=== PATIENT | female | born 1980 ===

== ENCOUNTER 2017-05-02 16:20 | Inpatient (IN) | payer MEDICAID ==
--- NOTE | 2017-05-02 20:53 | RAD ---
HISTORY: Seizure COMPARISONS: None VIEWS: 1: frontal portable view of the chest at 8:43 PM FINDINGS: LINES AND TUBES: None. CARDIOMEDIASTINAL SILHOUETTE: The cardiomediastinal silhouette is normal for portable technique. PLEURA: The costophrenic angles are sharp. No pleural abnormalities are noted. LUNG PARENCHYMA: The lung volumes are low. There is patchy alveolar opacification of the left lung base. ABDOMEN: The upper abdomen is clear. There is no subphrenic gas. BONES AND SOFT TISSUES: No bone or soft tissue abnormalities are noted. IMPRESSION: LOW LUNG VOLUMES. LEFT BASILAR ATELECTASIS VERSUS CONSOLIDATION
[2017-05-02] MEDS ORDERED: Ondansetron INJ* 2 MG/ML VIAL IV PRN (20:54)
[2017-05-02] MEDS ORDERED: Acetaminophen SUPP* 650 MG SUPP PR PRN (20:54)
[2017-05-02] MEDS ORDERED: LORazepam INJ* 2 MG/ML 1 ML VIAL IV PUSH PRN (21:10)
[2017-05-02 21:50] LABS: Hematocrit 34 % (35-47); Hemoglobin 11.1 g/dl (12.0-16.0); Mean Corpuscular HGB Conc 33 g/dl (31-36); Mean Corpuscular Hemoglobin 31 pg (27-31); Mean Corpuscular Volume 94 fL (80-97); Mean Platelet Volume 10 um3 (7.4-10.4); Red Blood Count 3.57 10^6/ul (4.0-5.4); Red Cell Distribution Width 16 % (10.5-15); White Blood Count 3.5 10^3/ul (3.5-10.8)
[2017-05-02] MEDS ORDERED: Zosyn per Pharmacy* NOTE FOLLOW UP SCH (22:00)
[2017-05-02 22:01] LABS: Albumin 3.1 g/dL (3.2-5.2); BUN/Creatinine Ratio 16.4 (8-20); C Reactive Protein 19.35 mg/L (< 5.00); Calcium 8.9 mg/dL (8.6-10.3); EGFR African American 60.7 (>60); EGFR Non-African American 47.2 (>60); Globulin 3.6 g/dL (2-4); Potassium 3.9 mmol/L (3.5-5.0); Total Bilirubin 0.5 mg/dL (0.2-1.0); Total Protein 6.7 g/dL (6.4-8.9)
[2017-05-02] MEDS: NS 0.9% 1000 ML* 1,000 ML IV SCH (22:21)
[2017-05-02] MEDS: Pantoprazole IV* 40 MG IV SCH (22:30)
[2017-05-02] MEDS: Heparin VIAL(*) 5000 UNITS/ML VIAL (FIVE THOUSAND) SUBCUT SCH (22:31)
[2017-05-02 23:17] LABS: Erythrocyte Sed Rate 49 mm/Hr (0-14)
--- NOTE | 2017-05-02 23:34 | HP ---
CC: Dr. De Santiago; Dr. Garcia; Dr. Dwyer * HISTORY AND PHYSICAL: DATE OF ADMISSION: 05/02/17 PRIMARY CARE PROVIDER: Dr. Garcia. CONSULTING NEUROLOGIST: Dr. Dwyer. MY ATTENDING PHYSICIAN WHILE IN THE HOSPITAL: Dr. Charleen Pillai * (report dictated by Elroy Gonzalez NP). CHIEF COMPLAINT: Weakness. HISTORY OF PRESENT ILLNESS: I would like to preface this report by saying that the patient is a significant intellectual developmental delay from cerebral palsy. 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 She comes in today from [facility] as the patient's mother, who is alone involved in her care, reports to me that approximately the beginning of March, she underwent an EEG with her primary neurologist, Dr. De Santiago, in [address]. We will try to get his records that showed that she was having subclinical seizures. She was started on the medication Onfi for these background seizures. Initially was doing well, however, mother has noted that over the last 3 weeks, she has had progressive worsening decline in her mentation. She has been more weak, more lethargic, drowsy, unable to walk. Before this, she was able to walk. She had a seizure about 3 weeks ago. She had a grand mal seizures. She was able to this. The patient unfortunately 4 days ago had an episode where she was choking. The mother was looking up the side effects of the Onfi. The patient's mother felt that this was causing her decline and since being put on this, she was not doing well. She stopped the medication. She went to her primary today for followup and it was noted today that the patient was so weak, she could barely get out of bed. Her appetite has been down. She has not been eating well. She just has not been doing well. Also there has been noted as having some tremors as well. The patient again is noted to have a decreased appetite. She has been more sedated and having difficulty. The patient was evaluated by her primary and she was sent back to [facility]. They called Dr. De Santiago, who felt that she would need long- term EEG monitoring according to [facility] notes and the patient was transferred here for further workup. In evaluating and talking with the mother, she has not had a grand mal. The last one was 3 weeks ago and the one before that was 6 weeks ago. She may still be having some background subclinical seizures but she has not had a repeat followup EEG. There was concern because of the choking episode, progressive worsening weakness, weight loss, and decreased appetite and that is what the mother's main concern was and why she presented to [facility] today, was not for worsening increasing seizures. She was evaluated there but because it was felt that she needed a higher level of care, we were asked to evaluate. There have been no reports of fever. No reports of vomiting, diarrhea. There was only one episode of choking and there has been no reports of abdominal distention, just again weakness, decreased appetite and just having more drowsiness. PAST MEDICAL HISTORY: She has had history of CP, intellectual development delay , seizures, lupus, CKD, Rett syndrome, history of CHF in the past and autism. PAST SURGICAL HISTORY: She has a port placement and port removal. HOME MEDICATIONS: According to the list provided by [facility] and the mother is going to bring in a more accurate list includes: 1. Milk thistle 175 mg p.o. daily. 2. Melatonin 3 mg p.o. at bedtime. 3. Magnesium oxide 250 mg p.o. daily. 4. Dandelion root 520 mg p.o. b.i.d. 5. Tylenol 325 mg p.o. every 6 hours as needed. 6. Prednisone 2.5 mg daily. 7. Imuran 150 mg p.o. daily. 8. Claritin 10 mg p.o. daily. 9. Plaquenil 200 mg p.o. b.i.d. 10. Keppra 500 mg p.o. b.i.d. 11. one application daily. 12. Lisinopril 5 mg daily. 13. Depo-Provera 150 mg every 12 weeks. 14. Calcium 600 mg p.o. q.48 hours. 15. Klonopin 1 mg p.o. b.i.d. 16. Norvasc 10 mg daily. 17. Lopressor 100 mg p.o. daily. 18. Ativan 0.5 mg p.o. daily as needed. 19. Zonegran 50 mg p.o. daily. 20. Acyclovir 400 mg p.o. b.i.d. ALLERGIES TO MEDICATION: Include PHENOBARBITAL and ONFI. FAMILY HISTORY: Both her parents are healthy and they are with her today. SOCIAL HISTORY: She does not smoke. She does not drink. Surrogate decision maker is her mother. REVIEW OF SYSTEMS: Unable to be obtained because of the patient's intellectual development delay. PHYSICAL EXAMINATION GENERAL: At this time, Ms. Rodriguez is a 37-year-old female patient. She is sitting in the ICU bed. She does not appear to be in any acute distress. She is alert. She is making eye contact with the mother. VITAL SIGNS: Blood pressure 116/70, pulse 72, respirations were 18, O2 sat was 98%. HEENT: Head is atraumatic, normocephalic. Eyes: Sclerae are anicteric. Pupils are blind. Throat: Oral mucosa appears to be dry. No oropharyngeal erythema. NECK: Supple. LUNGS: Clear to auscultation. No wheezes, rales, or rhonchi. HEART: Sounds S1, S2. Regular rate and rhythm. No murmurs, rubs, or gallops. ABDOMEN: Soft, flat, and nontender. Bowel sounds are present. EXTREMITIES: Pulses were 2+ throughout. She is grossly moving all 4 extremities. She had no gross focal deficits. SKIN: Grossly intact. DIAGNOSTIC STUDIES/LAB DATA: Labs over from [facility] revealed WBC of 4.39, RBC of 3.86, hemoglobin 12.2, hematocrit 36. Her platelet count was 332. Urine showed yellow, clear, 1+ bili, 1.026 specific gravity, 2+ protein, 3 to 5 rbc's. Glucose was 98, BUN 26, creatinine 1.70, sodium 144, potassium 4, chloride of 113, bicarb 19, calcium 9.2, total protein 7.6, albumin 3, AST 120, ALT 112, alk phos 120, lactic 1.4. Report from CT imaging showed no acute intracranial process. Old medical records were reviewed. ASSESSMENT AND PLAN: Ms. Rodriguez is a 37-year-old female patient with multiple medical problems coming into the [facility] ER for worsening weakness. We were asked to evaluate and she was transferred here for possible long-term EEG monitoring and neurologic evaluation. She will be admitted under inpatient status for: 1. Weakness. The etiology is unclear. It could certainly be med related from the Onfi. I do think that she does deserve a neurology consult, which will be done tomorrow. We may need to consider doing an EEG possibly long-term monitoring, titrating and adjusting the antiepileptic medications. Certainly weakness could be from worsening lupus as well, so I am going to add on a CRP and an ESR. It could be underlying occult infection. She did choke 4 days ago and aspiration is a possibility. We think a repeat chest x-ray is appropriate. My plan at this point is to monitor her. Should she have any signs of infection, I will put on antibiotics. We do not have any obvious source of infection at this point. We will get the x-ray. If it shows anything suspicious, we will certainly put her on antibiotics. 2. Seizures. Again at this point, she is not actively having any seizures here currently. We will continue to follow her and monitor her, put her on seizure precautions, p.r.n. Ativan is available. Should she have a seizure, we will continue her Keppra. I am switching it over to IV because of the dysphagia and we will continue to follow. 3. Dysphagia. Again, etiology is unclear. Question this is related to weakness. My plan would be to get a speech and swallow evaluation to evaluate this and again we will get Neurology evaluation as well and I will continue to follow. Should she pass a swallow eval, the mother does request mechanical ground diet and also Kosher diet. 4. Cerebral palsy. Continue with supportive care. 5. Intellectual developmental delay. Continue supportive care. 6. History of lupus. Again, we will check ESR, CRP. We will continue her meds when she is able to take p.o. She took them this morning. 7. Chronic kidney disease. Again, creatinine at [facility] was 1.7. We will hydrate her. We will repeat this tonight. 8. History of autism. I will continue supportive care. 9. History of congestive heart failure. She does not appear to be in any failure at this point. 10. Code status. Full code. 11. Fluids, electrolytes, nutrition. She is NPO pending a swallow evaluation. Did order normal saline at 100 an hour. 12. Hypertension. We will continue meds as prescribed. I did convert her Lopressor over to IV 5 mg once daily in the morning. When she is able to take p.o., we will switch to p.o. 13. DVT prophylaxis. She is high risk and placed on heparin subcu. TIME SPENT: Time spent on the admission 80 minutes; greater than half the time was spent [id number] with the patient obtaining my history and physical, other half of the time was spent going over the plan of care with the patient and implementing the plan of care. I did discuss plan of care with my attending, Dr. Pillai; she is in agreement. ELROY GONZALEZ, WELDER MACHINE OPERATOR [id number]/[facility] #: [id number] MTDKylee
[2017-05-03] MEDS: ZOSYN 3.375 GM Q8H per EXTENDED INFUSION IVPB SCH ×6 (03:58→21:21)
[2017-05-03] MEDS: Heparin VIAL(*) 5000 UNITS/ML VIAL (FIVE THOUSAND) SUBCUT SCH ×3 (06:24→21:25)
[2017-05-03 06:45] LABS: Hematocrit 30 % (35-47); Hemoglobin 9.8 g/dl (12.0-16.0); Mean Corpuscular HGB Conc 33 g/dl (31-36); Mean Corpuscular Hemoglobin 32 pg (27-31); Mean Corpuscular Volume 95 fL (80-97); Mean Platelet Volume 9 um3 (7.4-10.4); Red Cell Distribution Width 16 % (10.5-15)
[2017-05-03 07:02] LABS: BUN/Creatinine Ratio 16.2 (8-20); Calcium 8.2 mg/dL (8.6-10.3); EGFR African American 67.3 (>60); EGFR Non-African American 52.3 (>60)
[2017-05-03 07:12] LABS: Add Diff/Slide Review? Slide Review Added; Comments Flag Yes
[2017-05-03 07:54] LABS: Burr Cells 1+; Hypochromasia 1+; Tear Drop Cells 1+
[2017-05-03] MEDS ORDERED: clonazePAM TAB(*) 1 MG PO SCH ×2 (09:00→21:00)
[2017-05-03] MEDS ORDERED: levETIRAcetam TAB* 500 MG PO SCH ×2 (09:00→21:00)
[2017-05-03] MEDS ORDERED: Metoprolol Tartrate IV* 1 MG/ML 5 ML VIAL IV SCH (09:00)
[2017-05-03 09:19] LABS: TSH (Thyroid Stimulating Horm) 2.25 mcIU/mL (0.34-5.60)
[2017-05-03 09:26] LABS: Free T4 0.93 ng/dL (0.61-1.12)
--- NOTE | 2017-05-03 10:28 | CONS ---
CONSULTATION REPORT: DATE OF CONSULT: 05/03/17 PRIMARY CARE PHYSICIAN: Dr. Garcia. INPATIENT HOSPITALIST: Dr. Charleen Pillai. CURRENT LOCATION: ICU bed 2. REASON FOR CONSULT: Seizure like activity, weakness. HISTORY OF PRESENT ILLNESS: The patient has a history of Rett syndrome and is unable to give me any history. The mother is currently not at the bedside, but it is my hope that I will be able to cont act her today either in person or on the phone to discuss her case further. The nurse practitioner last night and I spoke on the phone several times and he had the opportunity to speak with the zache nt's mother and get some history. My history is going from my conversation last night as well as hi story and physical and discussions with the nurse this morning. The patient was not able to provide any meaningful history and is nonverbal. She apparently has a history of Rett syndrome and is foll owed by Dr. De Santiago, in [place]. We are attempting to get his records as well. Apparently, she has a h istory of "subclinical seizures." She has been on Keppra for some time, but recently was started on Onfi for her seizure like activity. She was on that for a short amount of time, when her mother no papito over the last several weeks that she started to decline. Whereas before she was walking, she wa s unable to walk. Her mother felt that she was generally weak and worsening, more lethargic and pramod wsy. Her last major seizure was 3 weeks ago reported, which was generalized tonic-clonic in nature. Apparently, the patient developed an episode 4 days ago, where she was choking and the mother was concerned that all of her decline was related to the Onfi. Per the nurse, the mother stopped the m edication and took her to the primary care, but she knew that she was stopping her seizure medicatio n. The primary care physician then sent her to the ER and Dr. De Santiago was notified and he felt that s he might need long-term EEG monitoring. At that time, she went back to the ER, she was noted to hav e worsening weakness, decreased appetite, more sedated, and tremors which appeared to be baseline as well. Based on this history, she was transferred here for additional monitoring and medication man agement per the admission history and physical. She has not had a generalized tonic/clonic seizure in the last several days. The last one was approximately 3 weeks ago, prior to that it was 6 weeks ago. Per the discussion with the mother, there have been no fevers, no reports of vomiting or diar francisco. Unfortunately, this is all of the history that I can get at this point. Again my plan is to speak with the mother later this morning to attempt to clarify some of these issues. PAST MEDICAL HISTORY: Includes: 1. Rett syndrome versus cerebral palsy. 2. Seizure disorder. 3. Lupus. 4. Chronic kidney disease. 5. CHF in the past. PAST SURGICAL HISTORY: Port placement and removal. MEDICATIONS: Per the electronic medical record, her active home medications include: 1. Milk thistle 175 mg per day. 2. Melatonin 3 mg at bedtime. 3. Magnesium oxide 250 mg daily. 4. Dandelion root 520 mg p.o. b.i.d. 5. Acetaminophen p.r.n. 6. Prednisone 2.5 mg p.o. daily. 7. Azathioprine 150 mg p.o. daily. 8. Loratadine 10 mg p.o. daily. 9. Hydroxychloroquine tab 200 mg p.o. b.i.d. 10. Keppra 1000 mg p.o. b.i.d. 11. Tea tree oil 1 oil extract daily. 12. Lisinopril 5 mg daily. 13. Depo-Provera 150 mg IM. 14. Calcium carbonate 600 mg p.o. q. 48 hours. 15. Clonazepam 1 mg p.o. b.i.d. 16. Amlodipine 10 mg p.o. daily. 17. Metoprolol 100 mg p.o. daily. 18. Lorazepam 0.5 mg daily p.r.n. 19. Zonegran 50 mg p.o. daily. 20. Acyclovir 400 mg p.o. b.i.d. FAMILY HISTORY: Parents are healthy. SOCIAL HISTORY: No tobacco, alcohol or drug use. REVIEW OF SYSTEMS: Review of systems in 14-organ systems I was unable to obtain because of the zach ent's mental status. PHYSICAL EXAM: Vital Signs: Blood pressure 140/66 to 136/70 to 153/73, heart rate in the 70s to 80 s, respiratory rate 21 to 26, O2 sat is 99 to 97 to 99. General: She is a thin fem armand, lying in her hospital bed. She expresses little emotion and is nonverbal. HEENT: She is norm ocephalic, atraumatic. Sclerae are anicteric. Mucous membranes are slightly dry. Oropharynx is moses ar. She has poor dentition. Neck: Supple. No thyromegaly. No carotid bruits. Chest: Clear to au scultation bilaterally. Cardiovascular: Regular rate and rhythm. Abdomen: Soft. Extremities: T here is no edema present. Neurologic Exam: She is awake, alert, but does not orient to person, maulik ce or time. She will look at me, but does not follow any commands. Cranial nerves: Her pupils are equally round and reactive to light. Her extraocular muscles are difficult to assess, but she jimenez s appear to look in all quadrants. Her face appears symmetric. Tongue: She would not protrude for me, I could not evaluate her palate, nor could I evaluate her sternocleidomastoid or trapezius. She blinks to threat. She spontaneously moves all extremities antigravity with increased tone througho ut. She has decreased movement on the left side greater than the right side, some purposeful movemen t bilaterally, but much greater on the right side than left side. As an example, she reached up with her right hand to try to pull the light away when I was examining her pupils. She slowly reached u p with her left hand, but it took much more time. She does withdraw the pain x4. No grimace was ap parent. DTRs were difficult to assess because of her positioning and compliance, but appeared to be down throughout, but symmetric. Babinski was equivocal. I could not test her gait or [id number], although at baseline she apparently does walk. She does have a resting tremor that is more a flap ping tremor at her arms and some tremor in her legs. This is consistent. It is a wide amplitude an d is present throughout movements and some at rest, although the nurse states the tremor did improve when she was sleeping. DIAGNOSTIC STUDIES/LAB DATA: Her lab work this morning includes a sodium of 142, potassium 4.0, chl oride of 118, carbon dioxide of 17, BUN of 19, creatinine of 1.17 down from 1.28 yesterday. BUN and creatinine ratio 15.2, glucose is 68, calcium of 8.2 yesterday. Her liver enzymes were elevated 11 5, ALT 70, alk phos is 90, total creatinine kinase is 660. Myoglobulin of 479.7, C-reactive protein of 19.35. ESR 49. Her white count this morning is 3. Hemoglobin of 9.8 and 30, yesterday 11.1 an d 34. INR 0.99. PTT is 34.9. Studies: An EEG is pending. A chest x-ray was done, which showed possible low lung volumes and pos sible left basilar atelectasis versus consolidation. ASSESSMENT AND PLAN: Ms. Rodriguez is a 37-year-old female who is nonverbal and unable to provide me any history, but per the records has a history of Rett syndrome versus cerebral palsy, development d elay, lupus, chronic kidney disease, congestive heart failure in the past, seizure disorder. She ap parently is on Keppra at baseline as well as Zonegran, and appears that she may be taking Klonopin a s well. She was recently put on Onfi and her mother noticed decrease in her functioning over the l ast several weeks. Her mother stopped the Onfi because she was concerned about her appetite, her w eight loss, her fatigue and somnolence, her inability to ambulate, which was a change from prior. S he had her last generalized tonic-clonic seizure reported 3 weeks ago and prior to that 6 weeks. Vic smith has had no recent generalized tonic-clonic seizure, but I suspect there is some concern about her tremor and possible underlying seizure activity as well. Her treating neurologist apparently had done an EEG, which showed subclinical seizures. Our plan today is 1. To get an EEG to look for subclinical seizures. 2. We will continue her Keppra and Zonegran. Try to clarify her medications but keep her off of e Onfi at this point. Per her chart, she is on Klonopin 1 mg p.o. b.i.d. and I will restart that to prevent any withdrawal seizures. 3. I will check Keppra and Zonegran levels, although these may take a while to come back. 4. She has a history of lupus, is on prednisone, Plaquenil, Imuran. Her ESR and CRP are elevated. Her white count is low. My concern would be, with her recent episode of choking 4 days ago that s he may have had an aspiration pneumonia. She has what looks like some consolidation in her lungs. She may not be able to mount much of a white count because of her immunosuppressants and her ESR an d CRP may be elevated due to infection versus her underlying autoimmune disorder. I would recommen d empiric antibiotic therapy, but I defer to her primary care physician. 5. I am going to check some additional labs including thyroid, copper level, ceruloplasmin, ammonia to make sure we are not missing some underlying cause of her tremor. 6. I am going to request her medical records from her treating neurologist to get a better sense of her most recent care. 7. I plan to speak with her family at some point today to flush out her history, her medication his tory specifically. 8. We will adjust her medications accordingly. Rett syndrome is associated with a number of abnorm alities including abnormal movements and stereotypical movements, loss of the ability to speak, gait difficulties, cardiac abnormalities. I do think she should be monitored on telemetry, but at this point she appears stable and I do think that she can be transferred to the floor with frequent neuro checks, seizure precautions. Because of her history of congestive heart failure, I am also going t o get an echocardiogram we will obtain a CT of her head to make sure there are no acute changes as w bipin. I will continue to follow her closely to make further recommendations as necessary. Thank you for the opportunity to participate in her care. [id number]/[facility] #: [id number]
--- NOTE | 2017-05-03 10:45 | CONS ---
ADDENDUM: DATE OF CONSULTATION: 05/03/17 Since my last note, I had a chance to talk with her mother; she gave me an updated medicine list. The mother states that prior to the addition of Onfi, the patient was actually clinically doing better. She saw her neurologist, who thought he found some subclinical seizures and that is when the Onfi was added. Since the Onfi was added, the patient's mother states that she seem to have declined, especially in the last week. She does note that she choked about 4 days ago and she went to the ER at that time. She subsequently went back to the ER yesterday, when her weakness became so profound that she could not walk. Her Keppra dose at home is 1250 mg in the morning and 1500 mg at night. Her creatinine is elevated. Her clearance is compromised. I am going to change the dose to 1000 mg p.o. b.i.d. for now as elevated keppra levels can paradoxically be associated with an increase frequency of seizures. We will continue her Zonegran at 200 mg p.o. b.i.d. I did speak with her mother extensively about the plan, which is to get her back on her normal dose of seizure medications, as she was doing well on those medications. Also noted this morning was elevated muscle enzymes of unclear etiology. I am not clear whether this may be an acute process or may be related to her underlying tremor activity. We will continue to follow this. I am going to check some additional lab work to rule out any kind of vasculitis, although my suspicion is low. It appears that her CK has dropped some to 563. This could also be related to the fact that she has been in bed lying down and not moving much with some underlying mild muscle breakdown. I also discussed with her primary treating physician the elevated CRP and ESR. It is unclear to me whether these may be related to an underlying infection given her recent choking episode or her rheumatologic condition. Primary is considering a Rheumatology referral as well. I will continue to follow along closely to make further recommendations. [id number]/[facility] #: [id number] KRISH
--- NOTE | 2017-05-03 10:55 | ECHO ---
Patient: ANABEL HERNANDEZ [facility] Rec#: [id number] : 1980 Date: 05/03/2017 Age: 37y Height: 152.4 cm / 60.0 in Weight: 49.44 kg / 109.0 lbs Sex: F BSA: 1.44 Room#: ICU-2 Admit Date#: 05/02/2017 Type: Inpatient Referring: Toribio Dwyer Reading: Gricel Juan MD Cryptographer: Yeimi Jasso RDCS CC: Brenton Garcia MD Transthoracic Echocardiogram Indication: CHF BP: 153/73 HR: 79 Rhythm: NSR Findings History: Rett syndrome,Cerebral Palsy,CHF,seizures, HTN,CKD. Technical Comments: The study quality is good. Completed at 1032. Left Ventricle: The left ventricular chamber size is normal. Mild concentric left ventricular hypertrophy is observed. Global left ventricular wall motion and contractility are within normal limits. There is normal left ventricular systolic function. The estimated ejection fraction is 50-55%. The patient was unable to perform a Valsalva maneuver. Left Atrium: The left atrial chamber size is normal. Right Ventricle: The right ventricular cavity size is normal. The right ventricular global systolic function is normal. Right Atrium: The right atrial cavity size is normal. Aortic Valve: The aortic valve is trileaflet. There is no evidence of aortic valve thickening. There is no evidence of aortic regurgitation. There is no evidence of aortic stenosis. Mitral Valve: The mitral valve leaflets are mildly thickened. There is a trace of mitral regurgitation. There is no evidence of mitral stenosis. Tricuspid Valve: The tricuspid valve leaflets are normal. There is a physiologic tricuspid regurgitation. There is no tricuspid stenosis. Pulmonic Valve: The pulmonic valve appears normal. There is a trace pulmonic regurgitation. There is no pulmonic stenosis. Pericardium: The pericardium appears normal. Aorta: There is no dilatation of the ascending aorta. There is no dilatation of the aortic arch. There is no dilation of the aortic root. Pulmonary Artery: The main pulmonary artery appears normal. Venous: The venous system is not well visualized. Summary: There was not any prior study for comparison. Conclusions The left ventricular chamber size is normal. Mild concentric left ventricular hypertrophy is observed. The estimated ejection fraction is 50-55%. There is a trace of mitral regurgitation. There is a trace pulmonic regurgitation. Measurements Name Value Normal Range RVIDd (AP) 2D 2.4 cm (0.9 - 2.6) RVDdMajor (2D) 3.7 cm (2.2 - 4.4) RAd ISD 4CH 4.5 cm (3.4 - 4.9) RA (A4C)W 2.9 cm (2.9 - 4.6) IVSd (2D) 1.2 cm (0.6 - 1) LVPWd (2D) 1.1 cm (0.6 - 1) LVIDd (2D) 3.9 cm (3.6 - 5.4) LVIDs (2D) 2.8 cm - LV FS (2D) 29 % (25 - 45) Aortic Annulus 2 cm (1.4 - 2.6) Ao root diameter (2D) 3.1 cm (2.1 - 3.5) Ascending Ao 2.5 cm (2.1 - 3.4) Aortic arch 2.2 cm (1.8 - 3.4) Descending Ao 0.8 cm - LA dimension (AP) 2D 2.9 cm (2.3 - 3.8) LAd ISD 4CH 4.4 cm (2.9 - 5.3) LA ISD 4CH W 3.5 cm (2.5 - 4.5) Name Value Normal Range LA ESV SP 4CH (A/L) 33 ml - LA ESV SP 2CH (A/L) 19 ml - LA ESV BP (A/L) 27 ml - LA ESV BP (A/L) index 19.05 ml/m2 - LA ESV SP 4CH (MOD) 31 ml - LA ESV SP 2CH (MOD) 17 ml - Name Value Normal Range MV E-wave Vmax 0.8 m/sec - MV deceleration time 198 msec - MV A-wave Vmax 0.6 m/sec - MV E:A ratio 1.39 ratio - LV septal e' Vmax 0.06 m/sec - LV lateral e' Vmax 0.07 m/sec - LV E:e' septal ratio 13.33 ratio - LV E:e' lateral ratio 11.42 ratio - Name Value Normal Range AV Vmax 1.2 m/sec - AV VTI 19.5 cm - AV peak gradient 6.09 mmHg - AV mean gradient 3.03 mmHg - LVOT Vmax 1 m/sec - LVOT VTI 16.2 cm - LVOT peak gradient 3.97 mmHg - LVOT mean gradient 1.72 mmHg - Name Value Normal Range PV Vmax 0.8 m/sec - PV peak gradient 2.26 mmHg -
--- NOTE | 2017-05-03 11:01 | PN ---
Subjective Date of Service: 05/03/17 Interval History: This is a 37 yo female with Rett's syndrome transferred from [place] yesterday with concern for possible status epilepticus with a CC of weakness. Per pt's mother she had been stable on Zonegran and Keppra for some time, but repeat EEG demonstrated subclinical seizures and she was started on Onfi, a long acting benzo. Since that time she had developed a cough associated with eating/ drinking, lethargy and difficulty ambulating. She stopped the Onfi ~3d ago. No obvious signs of seizure since arrival in ICU yesterday evening. Objective Active Medications: Acetaminophen (Tylenol Supp*) 650 mg VA Q4H PRN PRN Reason: FEVER/PAIN Clonazepam (Klonopin Tab(*)) 1 mg PO BEDTIME [facility] Heparin Sodium (Porcine) (Heparin Vial(*)) 5,000 units SUBCUT Q8HR [facility] Last Admin: 05/03/17 06:24 Dose: 5,000 units Sodium Chloride (Ns 0.9% 1000 Ml*) 1,000 mls @ 100 mls/hr IV PER RATE [facility] Last Admin: 05/02/17 22:21 Dose: 100 mls/hr Piperacillin Sod/Tazobactam (Sod 3.375 gm/ Sodium Chloride) 100 mls @ 25 mls/ hr IVPB Q8H [facility] Last Admin: 05/03/17 03:58 Dose: 25 mls/hr Levetiracetam (Keppra Tab*) 1,000 mg PO BID [facility] Lorazepam (Ativan Inj*) 1 mg IV PUSH Q6H PRN PRN Reason: SEIZURES Metoprolol Tartrate (Lopressor Iv*) 5 mg IV DAILY [facility] Ondansetron HCl (Zofran Inj*) 4 mg IV Q6H PRN PRN Reason: NAUSEA Pantoprazole Sodium (Protonix Iv*) 40 mg IV Q24H [facility] Last Admin: 05/02/17 22:30 Dose: 40 mg Pharmacy Consult (Zosyn Per Pharmacy*) 1 note FOLLOW UP .ZOSYN PER PHARMACY [facility]INO Zonisamide (Zonegran (Nf)) 200 mg PO BID [facility] Vital Signs: Temp Pulse Resp BP Pulse Ox 97.5 F 79 26 104/61 98 05/03/17 00:35 05/03/17 10:00 05/03/17 10:00 05/03/17 09:00 05/03/17 10:00 Oxygen Devices in Use Now: None Appearance: Young, non-verbal female who is alert and in NAD. Accompanied by her mother who is a good historian Respiratory: Symmetrical Chest Expansion and Respiratory Effort, Clear to Auscultation Cardiovascular: NL Sounds; No Murmurs; No JVD, RRR Abdominal: NL Sounds; No Tenderness; No Distention Extremities: No Edema Skin: No Rash or Ulcers Neurological: - - alert, non-verbal, fine tremor Result Diagrams: 05/03/17 06:22 05/03/17 06:22 Microbiology and Other Data: Microbiology 05/02/17 21:34 Nasal Screen MRSA (PCR)(RAMONE) - Final Nasal Mrsa Negative Diagnostic Imaging: CXR - possible L basilar infiltrate v atelectasis, poor film CT brain - pend CT chest - pend Assess/Plan/Problems-Billing Assessment: This is a 37 yo female with Rett's syndrome, seizure d/o, CKD, lupus, CHF, HTN who transferred from [facility] with complaint of weakness and concern for status epilepticus. - Patient Problems (1) Weakness Comment: No clinical signs of status epilepticus or intermittent seizure EEG completed and pending Greatly appreciate neuro input Symptoms correspond with initiation of Onfi and may all be medication related Pending CT of the brain (2) Seizure disorder Comment: Followed by Dr De Santiago out of [place] Previously stable on Keppra and Zonegran Porgressive weakness since starting Onfi Dose of Keppra decreased due to poor Cr clearance Appreciate neuro involvement Serum Zonegran and Keppra levels pend EEG completed but read pend (3) Rhabdomyolysis Comment: Moderate elevated of CPK No recent trauma, may be due to immobilization secondary to weakness Reviewed medications, Zonegran and Keppra can be associated with rhabdo, but less likely as these are chronic medications Cont IVF Repeat CPK in am (4) Transaminitis Comment: Mild elevation of AST/ALT with nl Alk Phos and Tbili This appears to be chronic, but slightly worse than baseline No other signs of hepatic impairement Unsure of the clinical significance Will monitor (5) Abnormal CXR Comment: Question LLL infiltrate Mild elevation of CRP and ESR, which may be due to her autoimmune condition Some recent cough, but seems to be limited only to meal time, but this would certainly increase risk of aspiration No leukocytosis or fever, but she is immune suppressed Zosyn empirically started Procalcitonin and CT of the chest pending to further assess presence of PNA (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 Likely transfer to medical floor later today
--- NOTE | 2017-05-03 11:09 | RAD ---
HISTORY: Seizure, history of cerebral palsy COMPARISONS: None TECHNIQUE: Multiple contiguous axial CT scans were obtained of the head without intravenous contrast. FINDINGS: HEMORRHAGE/INFARCT: There is no hemorrhage or acute infarct. MASSES/SHIFT: There is no mass or shift. EXTRA-AXIAL SPACES: There are no extra-axial fluid collections. SULCI AND VENTRICLES: The sulci and ventricles are normal in size and position for the patient's stated age. CEREBRUM: There are no focal parenchymal abnormalities. BRAINSTEM: There are no focal parenchymal abnormalities. CEREBELLUM: There are no focal parenchymal abnormalities. VESSELS: The vessels are grossly normal. PARANASAL SINUSES: The paranasal sinuses are clear. ORBITS: The orbits are unremarkable. BONES AND SOFT TISSUE: There are multiple calcified scalp nodules suggestive of epidermoid inclusion cysts OTHER: None IMPRESSION: NO ACUTE INTRACRANIAL PATHOLOGY.
[2017-05-03] MEDS: levETIRAcetam TAB* 500 MG PO SCH ×2 (11:12→21:24)
[2017-05-03] MEDS: CMC:Zonisamide (NF) 50 MG CAP PO SCH ×2 (11:12→21:25)
[2017-05-03] MEDS: Metoprolol Succinate XL TAB* 100 MG PO SCH (11:16)
--- NOTE | 2017-05-03 11:20 | RAD ---
INDICATION: Question pneumonia COMPARISON: Chest x-ray May 02, 2017 TECHNIQUE: Noncontrast axial source images were obtained from the thoracic inlet to the hemidiaphragms. Coronal and sagittal reconstructed images were acquired. The visualized neck to include the thyroid appear normal. Chest wall: There are no acute abnormalities of the bony thorax or chest wall. There is no supraclavicular, infraclavicular, or axillary lymphadenopathy. Lungs : There is mild linear change in the lingular segment most consistent with atelectasis. There is patchy interstitial change in the right middle lobe and in both lung bases left greater than right which may be related to an acute pneumonitis. There is no significant consolidation. Cardiomediastinal structures: The heart is normal in size. There is no pericardial effusion. There is no evidence of aortic aneurysm or dissection. The pulmonary vessels appear normal. There is no mediastinal or hilar adenopathy. The esophagus appears normal. Pleura : There are tiny bilateral effusions. Other: There are no acute or significant CT findings of the visualized upper abdomen. IMPRESSION: BILATERAL INFILTRATES CONCERNING FOR AN ACUTE PNEUMONITIS. THERE MAY BE AN ATELECTATIC COMPONENT WELL.
[2017-05-03] MEDS: NS 0.9% 1000 ML* 1,000 ML IV SCH (13:40)
[2017-05-03] MEDS: Pantoprazole IV* 40 MG IV SCH (21:23)
[2017-05-04] MEDS: NS 0.9% 1000 ML* 1,000 ML IV SCH (06:02)
[2017-05-04] MEDS: ZOSYN 3.375 GM Q8H per EXTENDED INFUSION IVPB SCH ×4 (06:04→12:14)
[2017-05-04] MEDS: Heparin VIAL(*) 5000 UNITS/ML VIAL (FIVE THOUSAND) SUBCUT SCH ×2 (06:20→13:58)
[2017-05-04 06:26] LABS: Hematocrit 31 % (35-47); Hemoglobin 10.2 g/dl (12.0-16.0); Mean Corpuscular HGB Conc 33 g/dl (31-36); Mean Corpuscular Hemoglobin 32 pg (27-31); Mean Corpuscular Volume 97 fL (80-97); Mean Platelet Volume 9 um3 (7.4-10.4); Red Blood Count 3.19 10^6/ul (4.0-5.4); Red Cell Distribution Width 16 % (10.5-15); White Blood Count 2.9 10^3/ul (3.5-10.8)
[2017-05-04 06:32] LABS: Add Diff/Slide Review? Slide Review Added; Comments Flag Yes
[2017-05-04 06:40] LABS: Albumin 2.7 g/dL (3.2-5.2); BUN/Creatinine Ratio 12.8 (8-20); Calcium 8.2 mg/dL (8.6-10.3); EGFR Non-African American 56.8 (>60); Globulin 3.2 g/dL (2-4); Potassium 3.7 mmol/L (3.5-5.0); Total Bilirubin 0.4 mg/dL (0.2-1.0); Total Protein 5.9 g/dL (6.4-8.9)
[2017-05-04] MEDS ORDERED: Albuterol 2.5 MG/3 ML NEB.SOL* (0.083%) INH PRN (08:57)
[2017-05-04] MEDS: Metoprolol Succinate XL TAB* 100 MG PO SCH (09:01)
[2017-05-04] MEDS: levETIRAcetam TAB* 500 MG PO SCH (09:01)
[2017-05-04] MEDS: CMC:Zonisamide (NF) 50 MG CAP PO SCH (09:01)
--- NOTE | 2017-05-04 10:13 | EEG ---
ELECTROENCEPHALOGRAPHY: DATE OF STUDY: 05/03/17 LOCATION: The patient is an inpatient in the ICU. ORDERING PROVIDER: GISELL Xavier CLINICAL PROBLEM: This is a 37-year-old left-handed woman with a seizure disorder diagnosed 17 years ago, autism, lupus, Rett syndrome, who was admitted on 05/02/17 as a transfer from [facility]. In March, her neurologist determined that she was having subclinical seizures and she was started on Onfi. Over the last 3 weeks, she has had worsened mentation with increased weakness, lethargy, drowsiness and inability to walk. Her mother stopped Onfi 5 days ago. The last seizure was a grand mal seizure approximately 3 weeks ago. EEG is requested to evaluate for epileptiform abnormalities. MEDICATIONS: 1. Heparin. 2. Zosyn. 3. Lopressor. 4. Levetiracetam. 5. Ondansetron. 6. Lorazepam. 7. Acetaminophen. 8. Pantoprazole. REPORT: For the majority of the recording, the patient was lying in bed with her eyes open. The background demonstrated low voltage activity, which was primarily in the beta range. Occasionally, posteriorly, there were some alpha/ theta range frequencies noted. The patient did not close her eyes during the study and no obvious posterior rhythm was observed. Approximately 11 minutes into the recording, the background demonstrated a change in which there was emergence of an 11 Hz rhythm in the left greater than right temporal region. This involved electrodes T3, T5 as well as O1. This activity was somewhat arrhythmic and did not evolve in spatial distribution. During this pattern, the patient was noted to flex her head forward and had some irregular movements of her upper extremities. In addition, her eyes appeared to be half closed. She was noted to turn her head towards the left towards where her mother was handing her a rattle during this activity. The activity abated for approximately 5 to 7 seconds, but then reemerged again when she flexed her head forward without any obvious evolution in terms of spatial distribution. This activity was not felt to represent ictal activity, but perhaps a state change. Throughout the recording, there were no epileptiform discharges noted. CLINICAL IMPRESSION: This is an abnormal EEG due to diminished gradients, no observable posterior rhythm in a background, which consists primarily of low voltage beta activity. The patient was observed to undergo state changes during this EEG. There were no clear ictal patterns noted. There were no epileptiform discharges. These findings are consistent with a mild to moderate , diffuse encephalopathy. [id number]/[facility] #: [id number] [facility]
[2017-05-04 10:38] VITALS: BP 119/85
[2017-05-04] MEDS ORDERED: Acetaminophen TAB* 325 MG PO PRN (13:39)
[2017-05-04 14:02] LABS: Levetiracetam 69.6 mcg/mL
--- NOTE | 2017-05-05 02:10 | DS ---
CC: Dr. Yanira Garcia; Dr. De Santiago; Dr. Dwyer * DISCHARGE SUMMARY: DATE OF ADMISSION: 05/02/17 DATE OF DISCHARGE: 05/04/17 PRIMARY CARE PROVIDER: Dr. Yanira Garcia [facility]. PRIMARY NEUROLOGIST: Dr. De Santiago out of [place]. CONSULTING NEUROLOGIST: Dr. Toribio Dwyer. DISCHARGING PROVIDER: GISELL Alvarez. SUPERVISING PHYSICIAN: Dr. Abida Hyman * (DICTATED BY GISELL ALVAREZ) PRIMARY DISCHARGE DIAGNOSES: 1. Complaints of weakness likely iatrogenic secondary to recent use of Onfi. 2. Aspiration pneumonia. 3. Elevated creatine phosphokinase, perhaps representing myopathy versus rhabdomyolysis. SECONDARY DISCHARGE DIAGNOSES: 1. Seizure disorder. 2. Rett syndrome. 3. Chronic kidney disease, stage 3. 4. Lupus. 5. Chronic systolic heart failure. 6. Hypertension. DISCHARGE MEDICATIONS: 1. Acyclovir 400 mg p.o. b.i.d. 2. Augmentin 875/125 one tablet p.o. twice daily x10 days. 3. Calcium carbonate 600 mg p.o. every other day. 4. Plaquenil 200 mg p.o. twice daily. 5. Ativan 0.5 mg p.o. daily. 6. Lisinopril 5 mg p.o. daily. 7. Loratadine 10 mg p.o. daily. 8. Magnesium oxide 250 mg p.o. daily. 9. Melatonin 3 mg p.o. at bedtime. 10. Metoprolol tartrate 100 mg p.o. daily. 11. Milk thistle 175 mg p.o. daily. 12. Zonegran 50 mg p.o. daily. 13. Amlodipine 10 mg p.o. daily. 14. Imuran 150 mg p.o. daily. 15. Clonazepam 1 mg p.o. twice daily. 16. Keppra 1000 mg p.o. twice daily. 17. Depo-Provera 150 mg IM q.12 weeks. 18. Prednisone 2.5 mg p.o. daily. Medication changes: 1. Start Augmentin x10 days. 2. Decrease Keppra to 1000 mg twice daily. HOSPITAL IMAGIN. Chest x-ray, 05/02/17, demonstrates low lung volumes, possible left basilar atelectasis versus consolidation. 2. CT of the brain demonstrates no acute intracranial pathology. 3. CT of the chest shows bilateral infiltrates concerning for an acute pneumonitis. There may be an atelectatic component as well. 4. Transthoracic echocardiogram shows normal ejection fraction at 50% to 55% with mild LVH and trace mitral regurg. 5. EEG. This is an abnormal EEG due to diminished gradients, no observable posterior rhythm in a background, which consists primarily of low-voltage beta activity. No clear ictal patterns. No epileptiform discharges. Findings are consistent with [id number] diffuse encephalopathy. 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 The patient has been treated with Keppra and Zonegran for several years and seizure disorder has been relatively stable with this. She apparently had an EEG completed by her neurologist, which demonstrated subclinical seizures and she was started on Onfi a few weeks ago. About a week after starting the medication , the patient's mother started to notice some increasing weakness, lethargy, drooling, and coughing associated with eating. She then had an acute choking episode approximately 3 to 4 days prior to her admission here, which prompted an emergency room visit at that time and discontinuation of the Onfi medication. The patient's weakness had declined to the point that she was unable to ambulate independently, which is her baseline. The patient's mother brought her back to the emergency department at [facility] with these complaints, and she was subsequently transferred to our medical facility for further evaluation with concerns for possible status epilepticus versus ongoing subclinical seizures. Upon arriving in our ICU, the patient was alert and nonverbal, which is her baseline. She was accompanied by her mother. No seizure activity was noted. Initial labs demonstrated a normal CBC. Comprehensive metabolic panel showed a creatinine of about 1.28, which seems to be near her baseline, slightly elevated transaminases, which seem to be fairly chronic for her. Also of note, CPK was elevated to 660, CRP mildly elevated to 19, sed rate 49, TSH noted to be normal at 2.25, procalcitonin negative. The patient underwent CT of the brain, which was unremarkable and EEG, which was reported as showing a diffuse encephalopathic pattern but no specific seizure activity. The patient underwent evaluation by Neurology, felt that her symptoms were most likely iatrogenic related to her recent introduction on Onfi, which had been discontinued about 3 days prior to her acute presentation. Her initial chest x- ray suggested a possible left basilar infiltrate, which was followed up with a chest x- ray, which demonstrated bibasilar infiltrates, was subsequently treated as a possible aspiration pneumonia given her recent complaints of choking and other coughing episodes surrounding mealtime. She underwent formal evaluation by Speech Therapy, which demonstrated the patient was mildly aspirating with thin liquids but able to tolerate honey thick. In regards to elevated CPK on serial measurements, this remains fairly constant , no worsening of her renal function, no significant improvement with IV fluid hydration. This was discussed at length with Neurology. Her home medications were reviewed and both Keppra and Zonegran to have rhabdomyolysis listed as a potential side effect but both of these medications have been chronic for her. This was felt to perhaps represent myopathy. The patient underwent evaluation with Physical Therapy, which demonstrated that she was fairly independent with sitting and standing and some discoordination with ambulation. The patient's mother felt that she was able to care for her at home and will complete home physical therapy. DISPOSITION AND FOLLOWUP PLAN: The patient is being discharged home where she lives with her mother who is quite attentive to her care. Medication changes made as outlined above. Prescribed 10 days of Augmentin for treatment for aspiration pneumonia and Keppra was decreased slightly to account for her renal function. The patient has followup scheduled with her neurologist for next week , which she is encouraged to keep and should also follow up with her primary care provider next week regarding her aspiration pneumonia. Of note, followup is necessary to further evaluate elevated CPK. She is followed by Rheumatology and perhaps there is old labs indicating that this is a chronic process for her. There is indication that this may be acute but an EMG and nerve conduction study may be indicated to evaluate for possible myopathy. GISELL ALVAREZ [id number]/[facility] #: [id number] [facility]yle[facility]
--- NOTE | 2017-05-05 02:26 | PN ---
PROGRESS NOTE: DATE OF PROGRESS NOTE: 05/04/17 LOCATION: She is currently in room 417, bed 1. SUBJECTIVE: Overnight, no new issues. There has been no seizure activity. Her mom, who is at the bedside with her states that she looks better, is feeling better, she was able to ambulate from her bed to the bathroom with assistance. She is eating more. She is using her left hand more than she was. Overall, her mom is very pleased and feels that she is doing better. There have been no new issues. OBJECTIVE: Overnight, vitals - temperature is 98.1, pulse is 73, respiratory rate of 18, pulse ox is 100%, blood pressure 115/74 to 126/66 to 119/85. In general, she is a well-nourished, well-developed female. She is sitting in her hospital bed. She is eating some lunch with her mother, who is helping her. HEENT: She is normocephalic, atraumatic. Sclerae are anicteric. Mucous membranes are moist. Poor dentition. Neck is supple. No thyromegaly. No carotid bruits. Chest: Clear to auscultation bilaterally. Cardiovascular: Regular rate and rhythm. Abdomen is nontender. Neurologic Exam: She is awake, alert. She responds to her name only. Cranial Nerves: Pupils are equal, round , and reactive to light. Extraocular muscles appear intact. Visual zhang are grossly full. Tongue is midline. Motor Exam: She is moving all extremities. She is now using her left hand, rasing it actively and using her right hand as well. She is able to lift all extremities antigravity, although it is a difficult examination. Her mother states it is how she normally moves. She did ambulate this morning with assistance. Her tremors, she continues to have some flapping-like tremors of the upper extremities, which her mom says are chronic in nature and improved. Sensation was difficult to assess. LABORATORY DATA: Overnight, her white count is 2.9, hemoglobin of 10.2, hematocrit of 31, platelet count of 194. Her LFTs are elevated at 99 and 65. Total creatine kinase is 640, myoglobin of 380. Her CK is elevated from yesterday 563 to 640. Her myoglobin is down 479 to 380. Creatinine of 1.09. She did have an EEG done, abnormal due to diminished gradient, no observable posterior rhythm in the background, which consists primarily of low-voltage beta activity. The patient was observed to undergo state changes. During this EEG, there were no clear ictal patterns noted. There were no epileptiform discharges. Findings are consistent with a [id number] diffuse encephalopathy. ASSESSMENT AND PLAN: Ms. 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 Since she has been stopped on that medication, she has been doing much better. We did decrease her Keppra to 1000 mg p.o. b.i.d., renally dosing it and we have continued her on her Zonegran unchanged. I will continue these medications. I would not add any additional medications. Her EEG did not show any subclinical seizure-like activity. Overall, her mother states that she looks great and she is doing much better. She does have some tenderness in her right upper quadrant in the abdomen and her mother states that she has chronic liver problems. Her LFTs are slightly elevated. This is something that needs to be followed up with her primary care physician. In addition, she has some elevated muscle enzymes, it is unclear whether this is a chronic condition or acute ongoing, it could be related to underlying lupus. Her myoglobin is improved, this is again something that needs to be followed short term. Once she is discharged, I would recommend a followup with her PCP in 1 to 2 weeks and recheck her CPK and myoglobin. If it remains elevated, can consider additional studies including an EMG/nerve conduction study to look for evidence of an undergoing myopathy. 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 It could be from the pressure on her muscles since she has been less active, lying in bed over the last few weeks and my suspicion for something like underlying vasculitis is very low, but I would not pursue this as an inpatient and recheck her levels in a few weeks. She needs to follow up with her meter record clerk as well as an outpatient. The plan is for her to follow up with Neurology in 4 weeks. I will be happy to see her as an outpatient or she can follow up with her treating neurologist at home. Thank you for the opportunity to participate in her care. [id number]/[facility] #: [id number] KRISH
[2017-05-05 15:00] LABS: Complement C3 63 mg/dL (75 - 175)
== END 2017-05-04 16:00 | disposition home health service (06) | DRG 861 ==
LOC: ICU 20:01 → MED 05-03 16:08
PROVIDERS: ADMIT Internal Medicine; ATTEND Internal Medicine
PROC: 4A00X4Z Measurement of Central Nervous Electrical Activity, External Approach (ICD-10-PCS; principal; 2017-05-03)
DX: R53.1 Weakness (principal); J69.0 Pneumonitis due to inhalation of food and vomit; G93.40 Encephalopathy, unspecified; F84.2 Rett's syndrome; M32.9 Systemic lupus erythematosus, unspecified; I13.0 Hypertensive heart and chronic kidney disease with heart failure and stage 1 through stage 4 chronic kidney disease, or unspecified chronic kidney disease; M62.82 Rhabdomyolysis; N18.3 Chronic kidney disease, stage 3 (moderate); I50.22 Chronic systolic (congestive) heart failure; G80.9 Cerebral palsy, unspecified; F81.9 Developmental disorder of scholastic skills, unspecified; Z88.8 Allergy status to other drugs, medicaments and biological substances; R13.10 Dysphagia, unspecified; G40.909 Epilepsy, unspecified, not intractable, without status epilepticus; R74.0 Nonspecific elevation of levels of transaminase and lactic acid dehydrogenase [LDH]; T42.4X5A Adverse effect of benzodiazepines, initial encounter; Y92.9 Unspecified place or not applicable; G72.9 Myopathy, unspecified; I34.0 Nonrheumatic mitral (valve) insufficiency; F79 Unspecified intellectual disabilities
CPT/HCPCS: 36415; 70450; 71010; 71250; 80048; 80053; 80177; 80203; 82140; 82390; 82525; 82550; 83516; 83874; 84145; 84439; 84443; 85025; 85610; 85652; 85730; 86140; 86160; 87040; 87641; 93306; 94640; 95816; A9270-GY; J1644; J2543